=== PATIENT | female | born 1980 | race African-American/Black ===

== ENCOUNTER 2016-05-31 14:55 | Emergency (ER) | payer MEDICAID ==
[2016-05-31 15:11] VITALS: BP 142/74; BMI 33.3
--- NOTE | 2016-05-31 16:16 | DR.GENAD ---
HPI - PCP Primary Care Physician: [id number] - HPI Comment HPI Comment: S/P GASTRIC BYPASS SURGERY PREVIOUSLY IS COMPLAING SHE HAD ABDOMINAL PAIN AND DISTENSION WITH NAUSEA. SHE IS DRAINING PUS OUT OF THE UMBILICUS AREA. NO FEVER. PAIN WORSE TODAY. - Complaint/Symptoms Chief Complaint Doctors Comments: PUS DRAINAGE FROM UMBILICUS, ABDOMINAL PAIN. Chief Complaint:: gastric bypass 6 years ago and her navel has been draining liquid for 5 days. - Nurses notes reviewed Nurses Notes Review: Yes - Source History Provided: Patient - Mode of Arrival Mode of Arrival: Ambulatory - Timing Onset of Chief Complaint: 05/24/16 Came on: Suddenly - Duration Duration: Constant Duration: Days - Severity Severity: Moderate PMH - PMH Past Medical History: Yes Past Medical History: Anemia, Asthma Past Surgical History: Yes Surgical History: Abdominal Surgery - Family History History of Family Medical Conditions: No - Social History Does patient currently use any type of tobacco product: No Have you used tobacco products in the last 12 months: No Type of Tobacco Use: None Does any household member use tobacco: No Alcohol Use: None Do you use any recreational Drugs:: No Lives With: Family Lives Where: Home - infectious screening In the last 2 months have you had wt loss of >10#?: NO Have you had fever, night sweats or hemotysis?: No Have you traveled outside the country in the last 6 months?: No Isolation: Standard ROS - Review of Systems Constitutional: Fever (AT HOME), Weakness, Loss of Appetite. negative: Chills Eyes: No Symptoms Reported ENTM: No Symptoms Reported Respiratoy: No Symptoms Reported Cardiovascular: No Symptoms Reported Gastrointestinal/Abdominal: Abdominal Pain, Nausea, Other (DRAINAGE FROM UMBILICUS.) Genitourinary: No Symptoms Reported. negative: Dysuria, Frequency, Hematuria Neurological: No Symptoms Reported Musculoskeletal: Muscle Pain Integumentary: Other (REDNESS UMBILICUS WITH ABRASIONS) Hematologic/Lymphatic: No Symptoms Reported Endocrine: No Symptoms Reported All Other Systems: Reviewed and Negative PE - Vital Signs Vitals: Temperature 97.8 F Pulse Rate 73 Respiratory Rate 16 Blood Pressure 142/74 O2 Sat by Pulse Oximetry 100 - General Limitations: No Limitations General Appearance: Alert - Head Head Exam: Normal Inspection - Eyes Eye exam: Normal Appearance - ENT ENT Exam: Normal External Ear Exam External Ear Exam: Normal External Inspection TM/Canal Exam: Bilateral Normal Nose Exam: Normal Nose Exam Mouth Exam: Normal Inspection Throat Exam: Normal Inspection - Neck Neck Exam: Trachea Midline - Chest Chest Inspection: Symmetric Chest Wall Rise - Respiratory Respiratory Exam: Normal Lung Sounds Bilat Respiratory Exam: Bilateral Clear to Auscultation - Cardiovascular Cardiovascular Exam: Regular Rate, Normal Rhythm, Normal Heart Sounds - Abdominal Exam Abdominal Exam: Normal Bowel Sounds, Soft. negative: Tenderness Abdominal Tenderness: Other (umbilicus infected with pus drainig.) - Extremities Extremities Exam: Normal Inspection - Back Back Exam: Normal Inspection - Neurologic Neurological Exam: Alert, Oriented X3 - Psychiatric Psychiatric Exam: Anxious - Skin Skin Exam: Erythema, Other (umbilicus with infected abrasions. pus draining.) [facility] - Additional Information Additional Information Obtained From: Family - Differential Diagnosis Differential Diagnosis: ABDOMINAL PAIN, BOWEL OBSTRUCTION, CELLULITIS ABDOMINAL WALL Course - Treatment Treatment: SEE ORDERS - Reevaluation 1st: Improved (PAIN IMPROVE WITH PAIN MED.) - Education/Counseling Education/Counseling: Patient, Family, Education Educated On: Treatment, Diagnosis, Needs for Follow Up ROR - Labs Reviewed Laboratory Results Reviewed?: Yes Result Diagrams: 05/31/16 16:30 05/31/16 16:30 Laboratory: 05/31/16 15:47 Navel Gram Stain - Final 05/31/16 15:47 Navel Wound Culture - Preliminary WBC 7.8 X10^3/uL (3.6-10.0) 05/31/16 16:30 RBC 3.39 X10^6/uL (3.5-5.4) L 05/31/16 16:30 Hgb 9.2 g/dL (12.0-16.0) L 05/31/16 16:30 Hct 28.7 % (36.0-47.0) L 05/31/16 16:30 MCV 84.5 fL (80.0-100.0) 05/31/16 16:30 MCH 27.2 pg (27.0-34.0) 05/31/16 16:30 MCHC 32.2 g/dL (33.0-35.0) L 05/31/16 16:30 RDW 16.6 % (11.6-16.5) H 05/31/16 16:30 Plt Count 217 X10^3/uL (150.0-450.0) 05/31/16 16:30 MPV 7.9 fL (7.4-11.0) 05/31/16 16:30 Neut % 64.4 % (42.0-75.0) 05/31/16 16:30 Lymph % 25.4 % (21.0-51.0) 05/31/16 16:30 [place] % 9.4 % (0.0-13.0) 05/31/16 16:30 Eos % 0.6 % (0.9-2.9) L 05/31/16 16:30 Baso % 0.2 % (0.2-1.0) 05/31/16 16:30 Neut # 5.0 x10^3/uL (2.2-4.8) H 05/31/16 16:30 Lymph # 2.0 X10^3/uL (1.3-2.9) 05/31/16 16:30 [place] # 0.7 x10^3/uL (0.3-0.8) 05/31/16 16:30 Eos # 0.0 x10^3/uL (0.0-0.2) 05/31/16 16:30 Baso # 0.0 X10^3/uL (0.0-0.1) 05/31/16 16:30 Absolute Nucleated RBC 0.0 /100WBC 05/31/16 16:30 Sodium 140 mmol/L (136-145) 05/31/16 16:30 Corrected Sodium TNP 05/31/16 16:30 Potassium 4.5 mmol/L (3.5-5.1) 05/31/16 16:30 Chloride 105 mmol/L (98-107) 05/31/16 16:30 Carbon Dioxide 28.1 mmol/L (21-32) 05/31/16 16:30 BUN 8 mg/dL (7-18) 05/31/16 16:30 Creatinine 0.77 mg/dL (0.55-1.02) 05/31/16 16:30 Est GFR (MDRD) Af Amer > 60 (>60) 05/31/16 16:30 Est GFR (MDRD) Non-Af > 60 (>60) 05/31/16 16:30 Glucose 86 mg/dL (65-99) 05/31/16 16:30 Calcium 8.5 mg/dL (8.5-10.1) 05/31/16 16:30 Corrected Calcium 9.1 mg/dL (8.5-10.1) 05/31/16 16:30 Total Bilirubin 0.40 mg/dL (0.2-1.0) 05/31/16 16:30 AST 23 Units/L (15-37) 05/31/16 16:30 ALT 16 Units/L (12-78) 05/31/16 16:30 Alkaline Phosphatase 70 Units/L (46-116) 05/31/16 16:30 Total Protein 7.4 g/dL (6.4-8.2) 05/31/16 16:30 Albumin 3.3 g/dL (3.4-5.0) L 05/31/16 16:30 Globulin 4.1 g/dL (2.5-4.5) 05/31/16 16:30 Albumin/Globulin Ratio 0.8 Ratio (1.1-2.1) L 05/31/16 16:30 Specimen Type Clean catch urine 05/31/16 17:36 Urine Color Red (YELLOW) 05/31/16 17:36 Urine Appearance Hazy (CLEAR) 05/31/16 17:36 Urine pH 6.0 (5.0 - 8.0) 05/31/16 17:36 Ur Specific [place] 1.010 (1.000-1.030) 05/31/16 17:36 Urine Protein 2+ (NEGATIVE) 05/31/16 17:36 Urine Glucose (UA) Negative (NEGATIVE) 05/31/16 17:36 Urine Ketones Negative (NEGATIVE) 05/31/16 17:36 Urine Occult Blood 5+ (NEGATIVE) 05/31/16 17:36 Urine Nitrite Positive (NEGATIVE) 05/31/16 17:36 Urine Bilirubin Negative (NEGATIVE) 05/31/16 17:36 Urine Urobilinogen Normal (NORMAL) 05/31/16 17:36 Ur Leukocyte Esterase 2+ (NEGATIVE) 05/31/16 17:36 Urine RBC 25-50 /HPF (NEGATIVE) 05/31/16 17:36 Urine WBC 0-2 /HPF (NEGATIVE) 05/31/16 17:36 Ur Squamous Epith Cells Rare /HPF (NEGATIVE) 05/31/16 17:36 Urine Bacteria Trace /HPF (NEGATIVE) 05/31/16 17:36 Ur Culture Indicated? No/not indicated 05/31/16 17:36 - XRAY XRAY Interpreted by: Radiologist XRAY Findings: REPORT DISCUSS WITH PATIENT. - Diagnosis Discharge Problem: Cellulitis of umbilicus, Abscess of umbilicus Abdominal pain Qualifiers: Abdominal location: generalized Qualified Code(s): R10.84 - Generalized abdominal pain - Discharge Plan Disposition: HOME, SELF-CARE Condition: Stable Prescriptions: Acetaminophen W/ Codeine [Tylenol/Codeine #3 300-30 mg] 1 tab PO Q4-6H PRN #15 tab PRN Reason: Pain Clindamycin HCl 300 mg PO Q6H #40 cap - Follow ups/Referrals Follow ups/Referrals: NFD,None [Primary Care Provider] - 3 days - Instructions Instructions: Abdominal Pain, Adult, [id number], Abscess, [id number], Cellulitis, [id number] Additional Instructions: RETURN TO ED IF WORSE.
[2016-05-31 16:41] LABS: BASOPHILS % (AUTO) 0.2 % (0.2-1.0); EOSINOPHILS % (AUTO) 0.6 % (0.9-2.9); HEMATOCRIT 28.7 % (36.0-47.0); HEMOGLOBIN 9.2 g/dL (12.0-16.0); LYMPHOCYTES % (AUTO) 25.4 % (21.0-51.0); MEAN CORPUSCULAR HEMOGLOBIN 27.2 pg (27.0-34.0); MEAN CORPUSCULAR HGB CONC 32.2 g/dL (33.0-35.0); MEAN CORPUSCULAR VOLUME 84.5 fL (80.0-100.0); MEAN PLATELET VOLUME 7.9 fL (7.4-11.0); MONOCYTES # (AUTO) 0.7 x10^3/uL (0.3-0.8); MONOCYTES % (AUTO) 9.4 % (0.0-13.0); NEUTROPHILS % (AUTO) 64.4 % (42.0-75.0); PLATELET COUNT 217 X10^3/uL (150.0-450.0); RED BLOOD COUNT 3.39 X10^6/uL (3.5-5.4); RED CELL DISTRIBUTION WIDTH 16.6 % (11.6-16.5); WHITE BLOOD COUNT 7.8 X10^3/uL (3.6-10.0)
[2016-05-31 16:54] LABS: ALANINE AMINOTRANSFERASE 16 Units/L (12-78); ALBUMIN 3.3 g/dL (3.4-5.0); ALKALINE PHOSPHATASE 70 Units/L (46-116); ASPARTATE AMINO TRANSFERASE 23 Units/L (15-37); BLOOD UREA NITROGEN 8 mg/dL (7-18); CALCIUM 8.5 mg/dL (8.5-10.1); CARBON DIOXIDE 28.1 mmol/L (21-32); CHLORIDE 105 mmol/L (98-107); COR CA(FOR HYPOALB) 9.1 mg/dL (8.5-10.1); CREATININE 0.77 mg/dL (0.55-1.02); GLUCOSE 86 mg/dL (65-99); SODIUM 140 mmol/L (136-145); TOTAL PROTEIN 7.4 g/dL (6.4-8.2); eGFR BLACK RACES > 60 (>60); eGFR NON BLACK RACES > 60 (>60)
[2016-05-31 18:04] LABS: BILIRUBIN,URINE NEGATIVE (NEGATIVE); BLOOD/HEMOGLOBIN,URINE 5+ (NEGATIVE); GLUCOSE, URINE NEGATIVE (NEGATIVE); KETONES,URINE NEGATIVE (NEGATIVE); LEUKOCYTE ESTERASE ,URINE 2+ (NEGATIVE); NITRITES,URINE POSITIVE (NEGATIVE); PROTEIN,URINE 2+ (NEGATIVE); UROBILINOGEN,URINE NORMAL (NORMAL)
[2016-05-31 18:08] LABS: APPEARANCE,URINE HAZY (CLEAR)
[2016-05-31 18:09] LABS: BACTERIA,URINE TRACE /HPF (NEGATIVE); COLOR,URINE RED (YELLOW); RBC,URINE 25-50 /HPF (NEGATIVE); SQUAMOUS EPITHELIAL CELL,UR RARE /HPF (NEGATIVE)
[2016-05-31] MEDS ORDERED: NS 100 ML IV 100 ML IV ONE (19:22)
--- NOTE | 2016-05-31 20:13 | CT ---
HISTORY: Abdominal pain and a navel drainage for 5 days Study: CT abdomen and pelvis with IV and oral contrast Comparison: None Technique: Multiple axial images of the abdomen and pelvis were obtained from the lung bases to the pubic symph ysis with the administration of IV contrast. Sagittal and coronal reformations were provided. Findings: The visualized portions of the lung bases are unremarkable. There are surgical clips secondary to ga stric bypass surgery. The liver, spleen, pancreas, kidneys, and adrenal glands are unremarkable in their CT appearance. The gallbladder is unremarkable in its CT appearance. No significant mesenteri c lymphadenopathy or stranding can be observed. No free fluid or free air is seen within the abdome n. The appendix is normal . There is no umbilical hernia. There is no definite fistula. The uterus is normal in size . There is no adnexal mass demonstrated. No bowel wall thickening or bowel dilatat ion is present. The colon is full of fecal material.. The urinary bladder is grossly unremarkable. The bony structures are grossly intact. IMPRESSION: 1. Colon full of fecal material, otherwise unremarkable status post gastric bypass surgery. Reported By:
[2016-05-31] MEDS ORDERED: CLEOCIN PO ONE (20:27)
[2016-05-31] MEDS ORDERED: PHENERGAN INJ 25 MG ONE (20:28)
[2016-05-31] MEDS ORDERED: DEMEROL INJ ONE (20:28)
[2016-05-31] MEDS ORDERED: MORPHINE SULFATE INJ 4 MG IVP ONE (20:38)
[2016-05-31] MEDS ORDERED: ZOFRAN INJ 4 MG VIAL IVP ONE (20:38)
[2016-05-31] MEDS ORDERED: CLEOCIN ONE (20:41)
[2016-05-31] MEDS ORDERED: MORPHINE SULFATE INJ 4 MG ONE (20:41)
[2016-05-31] MEDS ORDERED: ZOFRAN INJ 4 MG VIAL ONE (20:41)
== END 2016-05-31 21:25 | disposition home or self-care (01) ==
LOC: ER 15:21
DX: L03.316 Cellulitis of umbilicus (principal); L02.216 Cutaneous abscess of umbilicus; R10.84 Generalized abdominal pain; B95.61 Methicillin susceptible Staphylococcus aureus infection as the cause of diseases classified elsewhere
CPT/HCPCS: 36415; 74177; 80053; 81001; 85025; 87070; 87077; 87186; 87205; 96365; 96374; 96375; 99283; A4222; J2175; J2270; J2405; J2550